=== PATIENT | male | born 1995 | race Caucasian/White ===

== ENCOUNTER → 2021-05-28 11:19 | Outpatient (BNVA) | payer OTHER, SELFPAY | PROVIDERS: Visit Provider Nurse Practitioner Family | DX: Z20.822 Contact with and (suspected) exposure to COVID-19 (principal) | CPT/HCPCS: 87426; 87635 ==

== ENCOUNTER 2022-02-20 23:35 | Emergency (ER) | payer SELFPAY ==
[2022-02-20 23:41] VITALS: BP 152/101; PULSE 88; RESP 18; TEMP 36.4; O2SAT 96; BMI 37.3
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
[2022-02-21 00:46] VITALS: BP 137/94; PULSE 85; RESP 18; O2SAT 96
[2022-02-21 01:00] VITALS: BP 131/96; PULSE 88; O2SAT 94
[2022-02-21 01:30] VITALS: BP 154/103; PULSE 82; O2SAT 95
== END 2022-02-21 01:57 | disposition home or self-care (01) ==
PROVIDERS: Emergency Provider Physician Assistant
DX: S09.90XA Unspecified injury of head, initial encounter (principal); V40.5XXA Car driver injured in collision with pedestrian or animal in traffic accident, initial encounter; M25.532 Pain in left wrist; R51.9 Headache, unspecified
CPT/HCPCS: 70450; 70486; 71250; 72125; 72131; 73110; 74176; 99283

== ENCOUNTER 2023-09-26 14:04 | Emergency (ER) | payer MEDICAID, SELFPAY ==
[2023-09-26 14:08] VITALS: BP 156/89; PULSE 113; RESP 16; TEMP 37.2; O2SAT 97; BMI 39.3
--- NOTE | 2023-09-26 14:24 | XR_ITS ---
WS: [id number] Exam: XR chest 1V portable [id number] Date/Time of Exam: 09/26/2023 2:27 PM Reason For Exam: fever Comparison 10/01/2014. Findings: The lungs are clear and fully expanded. Costophrenic angles are sharp. No infiltrates. Bronchovascula r relief appears normal. Cardiac silhouette is unremarkable. Bony elements are intact. IMPRESSION: Unremarkable chest radiograph.
--- NOTE | 2023-09-26 14:58 | ED_ITS ---
HPI - COVID General: Chief Complaint: COVID symptoms Stated Complaint: fever, body aches Time Seen by Provider: 09/26/23 14:41 Source: patient Mode of arrival: ambulatory Limitations: no limitations History of Present Illness: 28-year-old male states he had cough con gestion along with fever over the last 3 days. States he had some nausea denies any severe dyspnea he had body aches. States he had COVID little over 2 years ago and states his symptoms feel the same. Denies any worsening improving factors. COVID 19 common symptoms: positive fever(s), non-productive cough, body aches and throat pain; negative chills, dyspnea, headache(s), nausea, vomiting or diarrhea COVID 19 other sytmptoms: negative chest pain COVID Results: SARS-CoV-2 Antigen (Rapid) negative (Negative) 09/26/23 15:20 SARS-CoV-2 RNA (RT-PCR) Detected (NOT DETECTED) A 05/28/21 11: 19 Review of Systems Const: Reports: fever(s) and body aches; Denies: chills or change in appetite ENMT: Reports: throat pain; Denies: dental pain Card: Denies: chest pain Resp: Reports: non-productive cough; Denies: dyspnea GI: Denies: abdominal pain, nausea, vomiting or diarrhea : Denies: dysuria Musc: Denies: neck pain or back pain Skin/Breast: Denies: rash Neuro: Denies: headache(s) PFS ED PFSH: Medical History No pertinent family history Surgical History No pertinent past surgical history Social History Smoking and tobacco/nicotine status: never used tobacco/nicotine Alcohol intake: never Physical Exam Const: COMMON NORMALS: no acute distress, patient oriented x3 and healthy appearing HENMT: COMMON NORMALS: normocephalic and atraumatic HEAD & SCALP: normocephalic and atraumatic MOUTH: Normal oral and palatal mucosa present Neck/C-Spine: COMMON NORMALS: full ROM and supple Chest: COMMONS NORMALS: normal inspection of the chest Resp: COMMON NORMALS: normal respiratory effort, No retractions, No use of accessory muscles and clear to auscultation bilaterally AUSCULTATION: clear to auscultation bilaterally Cardio: COMMON NORMALS: regular rate, regular rhythm and No murmurs present (Cardio) RATE: regular rate RHYTHM: regular rhythm GI: COMMON NORMALS: Normal to inspection, nondistended, normoactive bowel sounds present, Soft to palpation, non-tender and no masses PALPATION: Yes Soft to palpation Extremity: COMMON NORMALS: normal to inspection and full ROM Neuro: COMMON NORMALS: patient oriented x3, moves all extremities and no focal motor deficits Psych: COMMON NORMALS: mental status grossly normal, Normal thought process present and cooperative THOUGHT PROCESS: Normal thought process present Skin: COMMON NORMALS: no rashes or lesions noted and no wounds GENERAL SKIN EXAM: no rashes or lesions noted Course Vital Signs: Vital signs: Vital Signs Temperature 99.0 F 09/26/23 14:08 Pulse Rate 113 H 09/26/23 14:08 Respiratory Rate 16 09/26/23 14:08 Blood Pressure 156/89 09/26/23 14:08 Pulse Oximetry 97 09/26/23 15:26 Oxygen Delivery Me thod Room Air 09/26/23 15:26 MDM - COVID Medical Decision Making Patient presents here with upper respiratory infection likely viral COVID flu here negative x-ray shows no pneumonia he is well-appearing here to give him Decadron he is stable for discharge he is follow-up with PCP and return if worsening. Medical Records I reviewed the patient's medical records. Lab Data I reviewed the patient's lab results. Laboratory Results Influenza Type A Ag negative (Negative) 09/26/23 15:20 Influenza Type B Ag negative (Negative) 09/26/23 15:20 SARS-CoV-2 Ag (Rapid) negative (Negative) 09/26/23 15:20 SARS-CoV-2 Antigen (Rapid) negative (Negative) 09/26/23 15:20 SARS-CoV-2 RNA (RT-PCR) Detected (NOT DETECTED) A 05/28/21 11: 19 All radiology interpretation(s) finalized by discharge Discharge Plan Discharge Patient Disposition: Home Clinical Impression: Upper respiratory infection Qualifiers: URI type: unspecified URI Qualified Code(s): J06.9 - Acute upper respiratory infection, unspecified Condition: Stable Prescriptions: No Action cyclobenzaprine 7.5 mg tablet 7.5 mg PO BID PRN (Reason: muscle spasm and pain) Qty: 20 0RF Tylenol Extra Strength 500 mg tablet 1,000 mg PO Q6H PRN (Reason: pain) Qty: 30 0RF Discharge Orders: Discharge ED (Routine); Ordered 09/26/23 Ordered By: Nanda Javed Discharge Diet: Advance as tolerated Discharge Activity: Resume usual activity Patient Instructions: Upper Respiratory Infection (ED) Coding Level of Care Code ED [employer] As[employer]er for Magda Castillo
[2023-09-26] MEDS: ibuprofen 800 mg tablet PO (15:20)
[2023-09-26] MEDS: dexamethasone 10 mg/mL INJ IM (15:20)
[2023-09-26 15:26] VITALS: O2SAT 97
[2023-09-26 15:48] LABS: Influenza A by IFA negative (Negative); Influenza B by IFA negative (Negative)
[2023-09-26 15:50] LABS: SARS Covid-2 Antigen negative (Negative)
[2023-09-26 16:04] VITALS: PULSE 98; RESP 16; O2SAT 98
== END 2023-09-26 16:05 | disposition home or self-care (01) ==
PROVIDERS: Emergency Provider Emergency Medicine
DX: J06.9 Acute upper respiratory infection, unspecified (principal); Z11.52 Encounter for screening for COVID-19
CPT/HCPCS: 71045; 87426; 87804; 96372; 99284; J1100

== ENCOUNTER 2024-06-08 10:59 | Emergency (ER) | payer BC, MEDICAID, SELFPAY ==
[2024-06-08 11:22] VITALS: BP 148/99; PULSE 85; RESP 18; TEMP 36.9; O2SAT 98; BMI 37.8
[2024-06-08 11:47] LABS: Basophils % 0.5 %; Eosinophils # 0.1 10^3/uL (0.0-0.8); Eosinophils % 1.7 %; Hematocrit 44.2 % (37-53); Lymphocytes # 1.5 10^3/uL (0.8-4.8); Lymphocytes % 18.1 %; Mean Corpuscular HGB Conc 32.8 g/dL (30-55); Mean Corpuscular Volume 82.3 fl (82-101); Mean Platelet Volume 10.1 fL (7.4-10.4); Monocytes # 0.4 10^3/uL (0.2-0.9); Neutrophils # 5.93 10^3/uL (1.8-7.7); Neutrophils % 74.1 %; Nucleated Red Blood Cells % 0 %; Platelet Count 252 10^3/cmm (157-399); Red Blood Count 5.37 10^6/uL (3.85-5.65); Red Cell Distribution Width 13.5 % (12.1-15.1); White Blood Count 8.01 10^3/uL (3.29-11.43)
[2024-06-08 11:56] LABS: Add Urine Microscopic? NO
[2024-06-08 11:59] LABS: Bilirubin Urine 1+ (Negative); Blood Urine 3+ (Negative); Glucose Urine UA Negative (Normal); Ketones Urine Negative (Negative); Leukocyte Esterase Urine 1+ (Negative); Nitrate Urine Negative (Negative); Protein Urine 2+ (Negative); Specific Gravity, Urine 1.024 (1.005-1.030); Urine Appearance Cloudy (CLEAR)
[2024-06-08 12:03] LABS: Urine Color Red (Yellow)
[2024-06-08 12:04] LABS: Add Urine Culture? Yes; Bacteria Urine None Seen /hpf; Charge for UA Resulting for Rev; Hyaline Casts Urine 0.78 /lpf; RBC Urine >100 /hpf (0-2); Squamous Epithelial Cell Urine 0-5 /hpf (0-5)
[2024-06-08 12:06] LABS: Alanine Aminotransferase 24 U/L (0-41); Albumin Level 4.4 g/dL (3.5-5.2); Alkaline Phosphatase 68 U/L (40-130); Anion Gap 14.1 (5-19); Aspartate Amino Transferase 11 U/L (0-40); Blood Urea Nitrogen 13 mg/dL (6-20); Calcium 9.5 mg/dL (8.5-10.5); Carbon Dioxide 28 mmol/L (22-29); Chloride 103 mmol/L (98-107); Creatinine Clr Calc Pharmacy 161.3227; Globulin 3.1 g/dL (1.3-4.6); Glucose 105 mg/dL (65-115); Osmolality Calculated 292 mOsm/kg (285-295); Potassium 4.1 mmol/L (3.5-5.1); Sodium 141 mmol/L (136-145); Total Bilirubin 0.3 mg/dL (0.15-1.2); Total Protein 7.5 g/dL (6.6-8.7)
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
--- NOTE | 2024-06-08 12:49 | ED_ITS ---
HPI - Abdominal Pain 2 General: Chief Complaint: Abdominal Pain Stated Complaint: pain in left side Time Seen by Provider: 06/08/24 11:40 History of Present Illness: Patient presents to the ER with complaints of left-sided flank/abdominal pain sharp and stabbing in nature, dysuria, hematuria, denies nausea vomiting diarrhea fever chills, patient has no history of kidney stones. Related Data Previous Rx's Medication Instructions Recorded acetaminophen 500 mg tablet 1,000 mg (2 x 500 mg) PO Q6H PRN 02/21/22 (Tylenol Extra Strength) pain #30 tabs cyclobenzaprine 7.5 mg tablet 7.5 mg PO BID PRN muscle spasm and 02/21/22 pain #20 tabs ciprofloxacin HCl 500 mg tablet 500 mg PO Q12H #20 tabs 06/08/24 ketorolac 10 mg tablet 10 mg PO Q6H PRN Kidney stone pain 06/08/24 #14 tabs Allergies Allergy/AdvReac Type Severity Reaction Status Date / Time No Known Allergies Allergy Verified 06/08/24 11:31 Review of Systems 2 General: Reports: 10 or more systems reviewed and unremarkable except in HPI and below PFSH ED 2 PFSH: Medical History No pertinent family history Surgical History No pertinent past surgical history Social History Smoking and tobacco/nicotine status: never used tobacco/nicotine Alcohol intake: never Physical Exam 2 Const: COMMON NORMALS: no acute distress, average body habitus, patient oriented x3, no limitations, healthy appearing, alert and well nourished HENMT: COMMON NORMALS: normocephalic, atraumatic, hearing grossly normal bilaterally, external ears normal, Normal external nose present and moist oral mucous membranes HEAD & SCALP: normocephalic and atraumatic NOSE: Normal external nose present EXTERNAL EAR: Yes external ears normal Neck/C-Spine: COMMON NORMALS: full ROM, no lymphadenopathy, supple, no meningeal signs, no JVD and Thyroid normal THYROID: Thyroid normal Chest: COMMONS NORMALS: normal inspection of the chest and normal palpation of entire chest wall Resp: COMMON NORMALS: normal respiratory effort, No retractions, No use of accessory muscles and clear to auscultation bilaterally AUSCULTATION: clear to auscultation bilaterally Cardio: COMMON NORMALS: no JVD, regular rate, regular rhythm, S1 normal heart sound present, S2 normal heart sound present, No gallops present (Cardio), No clicks present (Cardio), No murmurs present (Cardio) and No rub (Cardio) R ATE: regular rate RHYTHM: regular rhythm HEART SOUNDS: S1 normal heart sound present and S2 normal heart sound present GI: COMMON NORMALS: Normal to inspection, nondistended, normoactive bowel sounds present, Soft to palpation, No hepatosplenomegaly present and no masses; negative for non-tender (Left lateral quadrant/flank tenderness with palpation) PALPATION: Yes Soft to palpation and Yes No hepatosplenomegaly present Neuro: COMMON NORMALS: patient oriented x3 SENSORIUM/ORIENTATION: Yes alert MENINGEAL SIGNS: Yes no meningeal signs Course 2 Vital Signs: Vital signs: Vital Signs Temperature 98.5 F 06/08/24 11:22 Pulse Rate 70 06/08/24 13:30 Respiratory Rate 18 06/08/24 11:22 Blood Pressure 148/99 06/08/24 11:22 Pulse Oximetry 97 06/08/24 13:30 Oxygen Delivery Me thod Room Air 06/08/24 13:30 MDM - Abdominal Pain Medical Decision Making Patient presented with left flank pain, urinalysis showed positive hematuria, blood work was unremarkable, CT scan showed minimal left-sided hydronephrosis with 3 mm proximal left ureteral stone and also right small stone still up in the kidney. Patient be given Toradol and discharged home. Medical Records I reviewed the patient's medical records. Lab Data I reviewed the patient's lab results. 06/08/24 11:31 06/08/24 11:31 Labs/Radiology: Radiology Impressions Abdomen/Pelvis CT 06/08/24 12:07 IMPRESSION: 1. Minimal left-sided hydronephrosis, secondary to a 3 mm proximal to mid left ureteral calculus. 2. Additional findings, as above. Laboratory Results WBC 8.01 10^3/uL (3.29-11.43) 06/08/24 11:31 RBC 5.37 10^6/uL (3.85-5.65) 06/08/24 11:31 Hgb 14.50 g/dL (11.27-16.99) 06/08/24 11:31 Hct 44.2 % (37-53) 06/08/24 11:31 MCV 82.3 fl (82-101) 06/08/24 11:31 MCH 27.0 pg (27-33) 06/08/24 11:31 MCHC 32.8 g/dL (30-55) 06/08/24 11:31 RDW 13.5 % (12.1-15.1) 06/08/24 11:31 Plt Count 252 10^3/cmm (157-399) 06/08/24 11:31 MPV 10.1 fL (7.4-10.4) 06/08/24 11:31 Neut % (Auto) 74.1 % 06/08/24 11:31 Lymph % (Auto) 18.1 % 06/08/24 11:31 [place] % (Auto) 5.0 % 06/08/24 11:31 Eos % (Auto) 1.7 % 06/08/24 11:31 Baso % (Auto) 0.5 % 06/08/24 11:31 Neut # (Auto) 5.93 10^3/uL (1.8-7.7) 06/08/24 11:31 Lymph # (Auto) 1.5 10^3/uL (0.8-4.8) 06/08/24 11:31 [place] # (Auto) 0.4 10^3/uL (0.2-0.9) 06/08/24 11:31 Eos # (Auto) 0.1 10^3/uL (0.0-0.8) 06/08/24 11:31 Baso # (Auto) 0.0 10^3/uL (0.0-0.1) 06/08/24 11:31 Nucleated RBC % (auto) 0 % 06/08/24 11:31 Nucleated RBCs # 0.0 /100WBC 06/08/24 11:31 Sodium 141 mmol/L (136-145) 06/08/24 11:31 Potassium 4.1 mmol/L (3.5-5.1) 06/08/24 11:31 Chloride 103 mmol/L (98-107) 06/08/24 11:31 Carbon Dioxide 28 mmol/L (22-29) 06/08/24 11:31 Anion Gap 14.1 (5-19) 06/08/24 11:31 BUN 13 mg/dL (6-20) 06/08/24 11:31 Creatinine 0.9 mg/dL (0.7-1.2) 06/08/24 11:31 GFR Calculation 102.0 mL/min (90-130) 06/08/24 11:31 Glucose 105 mg/dL (65-115) 06/08/24 11:31 Calculated Osmolality 292 mOsm/kg (285-295) 06/08/24 11:31 Calcium 9.5 mg/dL (8.5-10.5) 06/08/24 11:31 Total Bilirubin 0.3 mg/dL (0.15-1.2) 06/08/24 11:31 AST 11 U/L (0-40) 06/08/24 11:31 ALT 24 U/L (0-41) 06/08/24 11:31 Alkaline Phosphatase 68 U/L (40-130) 06/08/24 11:31 Total Protein 7.5 g/dL (6.6-8.7) 06/08/24 11:31 Albumin 4.4 g/dL (3.5-5.2) 06/08/24 11:31 Globulin 3.1 g/dL (1.3-4.6) 06/08/24 11:31 Urine Color Red (Yellow) A 06/08/24 11:48 Urine Appearance Cloudy (CLEAR) A 06/08/24 11:48 Urine pH 6.0 (5-7) 06/08/24 11:48 Ur Specific [place] 1.024 (1.005-1.030) 06/08/24 11:48 Urine Protein 2+ (Negative) A 06/08/24 11:48 Urine Glucose (UA) Negative (Normal) 06/08/24 11:48 Urine Ketones Negative (Negative) 06/08/24 11:48 Urine Blood 3+ (Negative) A 06/08/24 11:48 Urine Nitrate Negative (Negative) 06/08/24 11:48 Urine Bilirubin 1+ (Negative) H 06/08/24 11:48 Urine Urobilinogen 1.0 mg/dL (Negative) 06/08/24 11:48 Ur Leukocyte Esterase 1+ (Negative) A 06/08/24 11:48 Urine RBC >100 /hpf (0-2) H 06/08/24 11:48 Urine WBC 11-20 /hpf (0-5) H 06/08/24 11:48 Ur Squamous Epith Cells 0-5 /hpf (0-5) 06/08/24 11:48 Amorphous Sediment Not Reportable 06/08/24 11:48 Urine Bacteria None seen /hpf (NONE) 06/08/24 11:48 Hyaline Casts 0.78 /lpf 06/08/24 11:48 All radiology interpretation(s) finalized by discharge Discharge Plan Discharge Patient Disposition: Home Clinical Impression: Calculus of kidney Condition: Stable Prescriptions: New ciprofloxacin HCl 500 mg tablet 500 mg PO Q12H Qty: 20 0RF ketorolac 10 mg tablet 10 mg PO Q6H PRN (Reason: Kidney stone pain) Qty: 14 0RF No Action cyclobenzaprine 7.5 mg tablet 7.5 mg PO BID PRN (Reason: muscle spasm and pain) Qty: 20 0RF Tylenol Extra Strength 500 mg tablet 1,000 mg PO Q6H PRN (Reason: pain) Qty: 30 0RF Discharge Orders: Discharge ED (Routine); Ordered 06/08/24 Ordered By: Joaquin Quezada Patient Instructions: Kidney Stones Activity Restrictions/Additional Instructions: Your evaluation ER showed you have a 3 mm stone in your left ureter between your bladder and your kidney as well as another stone up in your right kidney. You have been prescribed a pain medicine as well as an antibiotic please get these filled and take these as directed. You should be able to pass the stone with no further intervention. If you develop nausea vomiting fever chills etc. please feel free to return to the ER or follow-up with your primary care physician. Coding Level of Care Code ED Risk Consultant for Magda Castillo
[2024-06-08 13:30] VITALS: PULSE 70; O2SAT 97
[2024-06-08 15:16] VITALS: BP 133/87; PULSE 78; O2SAT 97
== END 2024-06-08 15:29 | disposition home or self-care (01) ==
PROVIDERS: Emergency Provider Emergency Medicine
DX: N13.2 Hydronephrosis with renal and ureteral calculous obstruction (principal)
CPT/HCPCS: 74176; 80053; 81003; 85025; 87086; 99284